=== PATIENT | female | born 1995 | race African-American/Black ===

== ENCOUNTER → 2017-02-23 21:41 | Emergency (ER) | payer BC ==
[2017-02-23 21:48] VITALS: BP 138/91
--- NOTE | 2017-02-24 00:15 | ED ---
Laceration/Wound HPI - HPI Summary HPI Summary: 21F presents with laceration near right eyebrow. She was playing a soccer game and got hit near her eye with a elbow. She denies any LOC. She denies any nausea or vomiting. She denies any dizziness or lightheadedness. she does not have a headache. Her tetanus is up to date. - History of Current Complaint Stated Complaint: RT EYEBROW LAC Time Seen by Provider: 02/23/17 22:36 Hx Last Menstrual Period: 08/09/14 Pain Intensity: 0 - Allergy/Home Medications Allergies/Adverse Reactions: Allergies Allergy/AdvReac Type Severity Reaction Status Date / Time No Known Allergies Allergy Verified 02/23/17 21:50 PMH/Surg Hx/FS Hx/Imm Hx Endocrine/Hematology History: Denies: Hx Diabetes, Hx Thyroid Disease Cardiovascular History: Denies: Hx Hypertension Respiratory History: Denies: Hx Asthma, Hx Chronic Obstructive Pulmonary Disease (COPD) GI History: Denies: Hx Ulcer - Surgical History Surgery Procedure, Year, and Place: lt knee surgery 2012 Infectious Disease History: No Infectious Disease History: Denies: Hx Hepatitis, Hx Human Immunodeficiency Virus (HIV), Traveled Outside the in Last 30 Days - Family History Known Family History: Negative: Cardiac Disease - Social History Alcohol Use: Occasionally Substance Use Type: Reports: None Smoking Status (MU): Never Smoked Tobacco Review of Systems Negative: Fever Negative: Chest Pain Negative: Shortness Of Breath Positive: Other - laceration right eyebrow All Other Systems Reviewed And Are Negative: Yes Physical Exam Triage Information Reviewed: Yes Vital Signs On Initial Exam: Initial Vitals Temp Pulse Resp BP Pulse Ox 98.7 F 100 16 138/91 100 02/23/17 21:45 02/23/17 21:45 02/23/17 21:45 02/23/17 21:45 02/23/17 21:45 Vital Signs Reviewed: Yes Appearance: Positive: Well-Appearing Skin: Positive: Warm, Dry, Other - 1cm superficial laceration of right eyebrow Head/Face: Positive: Normal Head/Face Inspection, Other - no step off, racoon eyes, almanzar sign Eyes: Positive: Normal, EOMI, NIKKY, Conjunctiva Clear ENT: Positive: Normal ENT inspection, Pharynx normal, TMs normal Respiratory/Lung Sounds: Positive: Clear to Auscultation, Breath Sounds Present Cardiovascular: Positive: Normal, RRR Neurological: Positive: Sensory/Motor Intact, Alert, Oriented to Person Place, Time, CN Intact II-III - Tierney Coma Scale Best Eye Response: 4 - Spontaneous Best Motor Response: 6 - Obeys Commands Best Verbal Response: 5 - Oriented Procedures - Laceration/Wound Repair 1 Location: face Description: Linear Length, Depth and Shape: 1cm superficial Irrigated w/ Saline (ccs): 100 Closure: Skin Adhesive, SteriStrips Diagnostics - Vital Signs Vital Signs Temp Pulse Resp BP Pulse Ox 02/23/17 21:45 98.7 F 100 16 138/91 100 - Laboratory Lab Statement: Any lab studies that have been ordered have been reviewed, and results considered in the medical decision making process. Laceration Repair Course/Dx - Course Course Of Treatment: 21F presents with laceration near right eyebrow. She was playing a soccer game and got hit near her eye with a elbow. She denies any LOC. She denies any nausea or vomiting. She denies any dizziness or lightheadedness. she does not have a headache. Her tetanus is up to date. normal neuro exam. placed glue on right eyebrow laceration. told signs to return to ED for. patient understands and agrees with plan. - Differential Dx Differental Diagnoses: Abrasion, Avulsion, Laceration - Clinical Impression Provider Diagnoses: Facial laceration Discharge - Discharge Plan Condition: Good Disposition: HOME Patient Education Materials: Care For Your Stitches (ED) Referrals: Non Staff,Doctor [Primary Care Provider] - Additional Instructions: Place ice on area Take Tylenol for pain as needed every 6 hours Keep dry for 24 hours Glue will fall off on own Avoid scrubbing area Use sunscreen on area after laceration has healed Return to ED if develop any signs of infection, severe headache, vomiting, or any new or worsening symptoms
== END | disposition home or self-care (01) ==
LOC: ED 21:41
DX: S01.111A Laceration without foreign body of right eyelid and periocular area, initial encounter (principal); W50.0XXA Accidental hit or strike by another person, initial encounter; Y93.66 Activity, soccer; Y92.9 Unspecified place or not applicable; Y99.9 Unspecified external cause status
CPT/HCPCS: 99282